=== PATIENT | male | born 1970 ===

== ENCOUNTER 2016-07-16 12:42 | Outpatient (CLI) | payer BC | END 2016-07-16 12:43 | disposition home or self-care (01) | DX: R19.7 Diarrhea, unspecified (principal); K58.9 Irritable bowel syndrome, unspecified ==

== ENCOUNTER 2017-10-27 15:28 | Outpatient (CLI) | payer BC ==
[2017-10-27 18:08] LABS: CHOL/HDL RATIO 2.4 (<5.0); CHOLESTEROL 165 mg/dL; HDL CHOLESTEROL 70 mg/dL; LDL CHOLESTEROL,CALCULATED 66 mg/dL; LDL/HDL RATIO 0.9 (<3.6); VLDL CHOLESTEROL 29 mg/dL
== END 2017-10-27 15:29 | disposition home or self-care (01) ==
LOC: LAB.F 15:28
PROVIDERS: ATTEND Internal Medicine
DX: Z00.00 Encounter for general adult medical examination without abnormal findings (principal); J30.9 Allergic rhinitis, unspecified; K58.9 Irritable bowel syndrome, unspecified; T70 Effects of air pressure and water pressure; Z13.6 Encounter for screening for cardiovascular disorders
CPT/HCPCS: 36415; 80061; 83721

== ENCOUNTER 2019-05-14 07:18 | Outpatient (CLI) | payer OTHER | END 2019-05-14 07:19 | disposition home or self-care (01) | LOC: LAB.S 07:18 | PROVIDERS: ATTEND Internal Medicine | DX: Z13.1 Encounter for screening for diabetes mellitus (principal); Z83.3 Family history of diabetes mellitus | CPT/HCPCS: 36415; 82947 ==

== ENCOUNTER 2020-08-29 12:07 | Outpatient (CLI) | payer OTHER ==
[2020-08-29 14:55] LABS: BILIRUBIN,URINE NEGATIVE (NEGATIVE); GLUCOSE, URINE (UA) NEGATIVE (NEGATIVE); KETONES,URINE (UA) NEGATIVE (NEGATIVE); LEUKOCYTE ESTERASE, URINE NEGATIVE (NEGATIVE); NITRITE,URINE NEGATIVE (NEGATIVE); OCCULT BLOOD,URINE NEGATIVE (NEGATIVE); PROTEIN,URINE NEGATIVE (NEGATIVE); UROBILINOGEN,URINE 0.2 (NORMAL) E.U./dL (NORMAL)
[2020-08-29 15:02] LABS: BACTERIA,URINE None Seen /HPF (None Seen); CLARITY,URINE CLEAR (CLEAR); RBC,URINE 0-5 /HPF (0-5); SQUAMOUS EPITHELIAL CELL,UR RARE Squamous (<= Few); WBC,URINE 0-3 /HPF (0-3)
== END 2020-08-29 12:08 | disposition home or self-care (01) ==
LOC: LAB.S 12:07
PROVIDERS: ATTEND Internal Medicine
DX: R30.0 Dysuria (principal)
CPT/HCPCS: 81001; 81003; 87086

== ENCOUNTER 2020-09-04 13:45 | Outpatient (CLI) | payer OTHER ==
[2020-09-04 21:17] LABS: CHLAMYDIA TRACHOMATIS DNA NEGATIVE (NEGATIVE); NEISSERIA GONORRHOEAE DNA NEGATIVE (NEGATIVE)
== END 2020-09-04 13:46 | disposition home or self-care (01) ==
LOC: LAB.S 13:45
PROVIDERS: ATTEND Internal Medicine
DX: R30.0 Dysuria (principal)
CPT/HCPCS: 87491; 87591; 87661

== ENCOUNTER 2022-09-02 07:38 | Outpatient (CLI) | payer OTHER ==
[2022-09-02 14:57] LABS: CHOL/HDL RATIO 2.1 (<5.0); CHOLESTEROL 166 mg/dL; HDL CHOLESTEROL 79 mg/dL; LDL CHOLESTEROL,CALCULATED 73 mg/dL; LDL/HDL RATIO 0.9 (<3.6); TRIGLYCERIDES 69 mg/dL; VLDL CHOLESTEROL 14 mg/dL
[2022-09-02 20:44] LABS: ESTIMATED AVERAGE GLUCOSE 108 mg/dL (70-100); HEMOGLOBIN A1c% 5.4 % (4.27-6.07)
[2022-09-03 04:09] LABS: HIV SCREEN 4TH GENERATION Non Reactive (Non Reactive)
== END 2022-09-02 07:39 | disposition home or self-care (01) ==
LOC: LAB.S 07:38
PROVIDERS: ATTEND Internal Medicine
DX: Z13.1 Encounter for screening for diabetes mellitus (principal); Z12.5 Encounter for screening for malignant neoplasm of prostate; Z13.220 Encounter for screening for lipoid disorders; Z11.4 Encounter for screening for human immunodeficiency virus [HIV]
CPT/HCPCS: 36415; 80061; 83036; 83721; 84153; 87389